=== PATIENT | female | born 1950 | race Caucasian/White ===

== ENCOUNTER 2016-10-13 13:15 | Inpatient (IN) | payer MEDICARE, BC ==
[~2016-10-13] VITALS: Ht 175.3 cm; Wt 139.9 kg
[2016-10-13] MEDS ORDERED: BETAPACE 80MG80 MG PO (14:35)
[2016-10-13] MEDS ORDERED: ZOCOR 20MG20 MG PO (14:35)
[2016-10-13] MEDS ORDERED: KLONOPIN 1MG1 MG PO (14:35)
[2016-10-13] MEDS ORDERED: SINGULAIR 110 MG/TAB PO (14:36)
[2016-10-13] MEDS ORDERED: ELIQUIS 5MG PO (14:36)
[2016-10-13] MEDS ORDERED: SYNTHROID 0.0.025 MG PO (14:37)
[2016-10-13] MEDS ORDERED: VITAMIN D32000 I1 PO (14:38)
[2016-10-13] MEDS ORDERED: CITRACAL + D CA1 TAB PO (14:40)
[2016-10-13] MEDS ORDERED: MAXI VISION PO (14:42)
[2016-10-13] MEDS ORDERED: ALTERIL PO (14:43)
[2016-10-13] MEDS ORDERED: ALLEGRA 60MG TA60 MG PO (14:49)
[2016-10-13] MEDS ORDERED: MUCINEX 60600 MG/TA1 PO (14:49)
[2016-10-13 16:17] VITALS: BP 135/40; PULSE 62; TEMP 97.5
[2016-10-13 16:18] VITALS: BP 135/40; PULSE 62; TEMP 97.5
[2016-10-13 20:49] VITALS: BP 133/55; PULSE 69; TEMP 97.7
[2016-10-13 23:50] VITALS: BP 121/56; PULSE 63; TEMP 98.1
[2016-10-14 03:36] VITALS: BP 122/61; PULSE 63; TEMP 98.4
[2016-10-14 07:13] LABS: BASO % 0.3 % (0.0-2.0); EOS # 0.3 (0.0-0.7); EOS % 5.8 % (0-4.0); GRAN # 3.1 (1.4-6.5); GRAN % 53.5 % (42.2-75.2); HEMATOCRIT 38.3 % (37.0-47.0); HEMOGLOBIN 12.5 g/dl (12.5-16.0); LYMPH # 1.8 (1.2-3.4); LYMPH % 30.6 % (20.0-51.0); MEAN CELL VOLUME 93 fl (80.0-100.0); MEAN CORPUSCULAR HEMOGLOBIN 31 pg (27.0-31.0); MEAN CORPUSCULAR HGB CONC 33 g/dl (33.0-37.0); MEAN PLATELET VOLUME 11.2 fl (7.4-10.4); MONO # 0.5 (0.1-0.6); MONO % 9.3 % (1.7-9.3); PLATELET COUNT 166 K/mm3 (130-400); REDCELL DISTRIBUTION WIDTH-CV 12.5 % (11.5-14.5); WHITE BLOOD COUNT 5.7 K/mm3 (4.8-10.8)
[2016-10-14 07:42] LABS: ADJUSTED CALCIUM 8.8 mg/dL (8.4-10.2); ALBUMIN 3.9 gm/dL (3.5-5.0); CALCIUM 8.7 mg/dL (8.4-10.2); CREATININE, serum 0.82 mg/dL (0.52-1.25); POTASSIUM 4.5 mmol/L (3.4-5.0); TOTAL PROTEIN 7.3 gm/dL (6.4-8.2)
[2016-10-14 08:33] VITALS: BP 119/43; PULSE 62; TEMP 98
[2016-10-14 11:57] VITALS: BP 131/52; PULSE 65; TEMP 97.9
[2016-10-14] MEDS ORDERED: ELIQUIS 5MG PO (15:05)
== END 2016-10-14 16:27 | disposition home or self-care (01) | DRG 65 ==
LOC: MEDICAL 13:15
PROVIDERS: Physician Assistant
DX: I63.40 Cerebral infarction due to embolism of unspecified cerebral artery (principal); G81.94 Hemiplegia, unspecified affecting left nondominant side; I48.0 Paroxysmal atrial fibrillation; E78.5 Hyperlipidemia, unspecified; E03.9 Hypothyroidism, unspecified; G47.33 Obstructive sleep apnea (adult) (pediatric)
CPT/HCPCS: 99223-AI; 99239